=== PATIENT | female | born 1960 | race Hispanic/Latino ===

== ENCOUNTER 2025-02-18 12:23 | Emergency (ER) | payer SELFPAY ==
[2025-02-18] MEDS ORDERED: Ondansetron PF 4 MG/2 ML Vial ONE (13:12)
[2025-02-18] MEDS ORDERED: HYDROcodone/Acetaminophen 10/325 mg Tablet ONE (13:14)
== END 2025-02-18 14:55 | disposition home or self-care (01) ==
LOC: ERS 12:23
DX: S43.004A Unspecified dislocation of right shoulder joint, initial encounter (principal); W11.XXXA Fall on and from ladder, initial encounter
CPT/HCPCS: 23650; 70450; 72125; 96374; 96375; J2270; J2405; J3010